=== PATIENT | male | born 1975 | race Caucasian/White ===

== ENCOUNTER 2024-07-01 16:39 | Outpatient (CLI) | payer BC | END 2024-07-01 23:59 | disposition home or self-care (01) | LOC: MRI02 16:39 | PROVIDERS: ATTEND Family Medicine Sports Medicine | DX: S62.001A Unspecified fracture of navicular [scaphoid] bone of right wrist, initial encounter for closed fracture (principal); M65.351 Trigger finger, right little finger; G56.01 Carpal tunnel syndrome, right upper limb; M25.532 Pain in left wrist; X58.XXXA Exposure to other specified factors, initial encounter; Y93.89 Activity, other specified; Y92.89 Other specified places as the place of occurrence of the external cause; Y99.8 Other external cause status | CPT/HCPCS: 73221 ==